=== PATIENT | male | born 2000 | race African-American/Black ===

== ENCOUNTER 2024-07-18 13:28 | Emergency (ER) | payer OTHER ==
[2024-07-18 13:41] VITALS: BP 136/90; PULSE 68; RESP 20; TEMP 98.4; BMI 18.0
[2024-07-18] MEDS ORDERED: BACITRACIN ZINC 15 GM TUBE TOPICAL OINTMENT ONE (14:02)
[2024-07-18] MEDS ORDERED: DIPHTH,PERTUSS(ACELL),TET 0.5 ML DISP.SYRIN IM ONE (14:03)
[2024-07-18] MEDS: DIPHTH,PERTUSS(ACELL),TET 0.5 ML DISP.SYRIN IM ONE (14:07)
[2024-07-18] MEDS: BACITRACIN 0.9 GM PACKET TP ONE (14:08)
== END 2024-07-18 14:35 | disposition home or self-care (01) ==
LOC: JERFT 13:28
PROC: 3E0234Z Introduction of Serum, Toxoid and Vaccine into Muscle, Percutaneous Approach (ICD-10-PCS; principal; 2024-07-18)
DX: S61.512A Laceration without foreign body of left wrist, initial encounter (principal); Z23 Encounter for immunization; W26.8XXA Contact with other sharp object(s), not elsewhere classified, initial encounter
CPT/HCPCS: 90471; 90715; 99284-25